=== PATIENT | female | born 1965 | race Caucasian/White ===

== ENCOUNTER 2023-07-20 13:57 | Inpatient (IN) | payer BC, SELFPAY ==
[2023-07-20] VITALS (10 sets, daily range): BP systolic 105–189; BP diastolic 63–110
[2023-07-20 07:57] LABS: % Basophils 0.3 % (0-2); % Eosinophils 0.4 % (0-6); % Immature Granulocytes 0.3 % (0-0.5); % Lymphocytes 9.8 % (20.5-51.1); % Monocytes 5.3 % (1.7-9.3); % Neutrophils 83.9 % (42.2-75.2); Absolute Basophils 0.1 10^3/uL (0-0.2); Absolute Eosinophils 0.1 10^3/uL (0-0.7); Absolute Immature Granulocytes 0.1 10^3/uL (0-0.05); Absolute Lymphocytes 1.7 10^3/uL (1.2-3.4); Absolute Monocytes 0.9 10^3/uL (0.1-0.6); Absolute Neutrophils 14.3 10^3/uL (1.4-6.5); Hemoglobin 13.9 g/dL (12.0-16.0); Mean Corp Hgb Conc. 34.8 g/dL (33.0-37.0); Mean Corpuscular Hgb 27.7 pg (27.0-31.0); Mean Corpuscular Volume 79.8 fL (81.0-99.0); Mean Platelet Volume 10.6 fL (7.4-10.4); Nucleated Red Blood Cells % 0 %; Platelet Count 218 10^3/uL (130-400); Red Blood Cell Count 5.01 10^6/uL (4.20-5.40); Red Cell Dist. Width 14.1 % (11.5-14.5)
[2023-07-20 08:10] LABS: ALT (SGPT) 36 U/L (0-35); AST (SGOT) 26 U/L (14-36); Albumin 3.8 g/dl (3.5-5.0); Alkaline Phosphatase 65 U/L (38-126); Blood Urea Nitrogen 10 mg/dl (7-17); Calcium 9.1 mg/dl (8.4-10.2); Carbon Dioxide 22 mmol/L (22-30); Chloride 104 mmol/L (98-107); Glucose 119 mg/dl (70-99); Potassium 3.3 mmol/L (3.5-5.1); Sodium 133 mmol/L (135-145); Total Bilirubin 1.1 mg/dl (0.2-1.3); Total Protein 6.4 g/dl (6.3-8.2); eGFR > 60.00
--- NOTE | 2023-07-20 08:58 | ED.GENMED ---
History of Present Illness
General
Chief Complaint: Abdominal Symptoms
Source: patient, spouse and family
Exam Limitations: none
Time Seen by Provider: 07/20/23 08:08
Nursing documentation reviewed up to this point in time: agreed with
Travel History
Have you had any contact with someone who has COVID-19?: No
Do you have any symptoms of coronavirus? Fever > 100 degrees, chills, cough, shortness of breath, sore throat, loss of taste or smell, muscle aches, or headache?: No
History of Present Illness
History of Present Illness:
58-year-old female with past medical history of hypertension hyperlipidemia, GERD, asthma multiple back and neck surgeries presenting to the emergency department today with concerns of abdominal pain. Recently diagnosed with colitis and was
admitted to [facility] 2 days ago but left AMA. She claims that she has had ongoing and worsening abdominal pain as well as bloody bowel movement since last night as well as this morning. Denies any fevers has had nausea no vomiting.
She spoke with her GI doctor that recommended getting an angiogram to evaluate for possible ischemic colitis. Of note over the past year she had a colonoscopy that required her to follow-up with repeated colonoscopy at [facility] for multiple mass
removals that were noncancerous.
Past History
Past History
ED Past Medical History: None
ED Past Surgical History: None
Review of Systems
Review of Systems
Allergies reviewed?: Yes
All Other Systems: ROS reviewed and negative except as documented in HPI and ROS
Phy Exam
Physical Exam
Physical Exam:
GENERAL: Alert , in no apparent distress
EYE: pupils equal and reactive
NECK: Supple, no significant adenopathy.
ENT: o/p clr, mmm.
CARDIAC: Regular rate and rhythm .
LUNGS: Clear breath sounds bilaterally, no acute respiratory distress, no wheezes/rales/rhonchi
ABDOMEN: Discomfort throughout the left side of the abdomen no specific point tenderness no sharp tenderness no peritoneal signs no significant guarding. Rectal examination revealed red-tinged stool guaiac positive.
NEUROLOGICAL: Alert and oriented, no focal neuro deficits
SKIN: Warm and dry, skin intact.
MUSCULOSKELETAL: No edema, well perfused.
PSYCH: Normal and appropriate interaction.
Course
Orders/Labs/Results
Orders:
Orders
07/20/23 07:48
Complete Blood Count/With Diff Urgent
Comprehensive Metabolic Panel Urgent
07/20/23 08:48
CT Angio Abd/Pelvis w/wo IV [CT Abd/pelvis Angio W/wo Iv] Urgent
Comment:
Reason For Exam: sent in by GI for angio eval colitis
Urinalysis Reflex To Culture Urgent
Stool Culture Urgent
LAILA Source: Feces/Stool
Specimen Description:
0.9% Sodium Chloride 1000 ml [Nss] 1,000 ml IV BOLUS
Morphine Sulfate 4 mg IV NOW STA
Ondansetron Injectable [Zofran] 4 mg IV NOW STA
Pantoprazole [Protonix IV] 40 mg IV NOW STA
07/20/23 08:54
Sterile Water [Sterile Water For Injection] 10 ml .ROUTE .[facility]
07/20/23 08:56
Lactic Acid Urgent
Lipase Urgent
PTT Urgent
Prothrombin Time Urgent
07/20/23 09:05
Type+Screen Urgent
07/20/23 11:11
C DIFF [C difficile Antigen & Toxins] Urgent
LAILA Source: Feces/Stool
Specimen Description:
Piperacillin/Tazo 3.375 Gram [Zosyn] 3.375 gram in 50 ml IV NOW
Abnormal Lab Results
07/20/23 07/20/23
07:48 08:56
WBC 17.0 H 10^3/uL
(4.8-10.8)
MCV 79.8 L fL
(81.0-99.0)
MPV 10.6 H fL
(7.4-10.4)
Abs Immat Gran (auto) 0.1 H 10^3/uL
(0-0.05)
Absolute Neuts (auto) 14.3 H 10^3/uL
(1.4-6.5)
Absolute Monos (auto) 0.9 H 10^3/uL
(0.1-0.6)
Neutrophils % 83.9 H %
(42.2-75.2)
Lymphocytes % 9.8 L %
(20.5-51.1)
APTT 36.3 H Sec
(23.4-35.0)
Sodium 133 L mmol/L
(135-145)
Potassium 3.3 L mmol/L
(3.5-5.1)
Glucose 119 H mg/dl
(70-99)
ALT 36 H U/L
(0-35)
07/20/23 07:48
07/20/23 07:48
Vital Signs
Initial and Last Documented VS:
Initial Vital Signs
Temp Pulse Resp BP Pulse Ox
97.4 F 96 18 189/110 100
07/20/23 07:17 07/20/23 07:17 07/20/23 07:17 07/20/23 07:17 07/20/23 07:17
Last Documented Vital Signs
Temp Pulse Resp BP Pulse Ox
97.4 F 97 9 134/90 99
07/20/23 07:17 07/20/23 11:17 07/20/23 09:22 07/20/23 11:16 07/20/23 08:45
MDM/Problems Addressed
MDM/Problems Addressed:
58-year-old female presenting to the emergency department today with concerns of worsening abdominal discomfort mainly to the left side recently diagnosed with colitis 2 days ago at [facility] was admitted but left prior to concluding her
treatment. Was started on an IV antibiotics at the time. Has had rectal bleeding since last night described as moderate volume. Denies any lightheadedness has had nausea. No fevers. She spoke with her GI doctor they recommended getting an
angiogram to rule out ischemic colitis. CT scan showing significant colitis of the transverse and descending colon also free fluid near the spleen and the pelvic cul-de-sac. Patient with some ongoing bleeding here ongoing pain despite IV opioid
plan to admit for further treatment. Started on IV antibiotic as well.
*Critical Care Note
Total Time (30-74mins, 75-104mins- exclusive of procedures): Not Applicable
ED Attending Note
-
Portions of this chart may have been created with voice recognition software.� Occasional wrong word or��sound alike� substitutions may have occurred due to the inherent limitations of voice recognition software.
Discharge Plan
Departure
Patient Disposition: Admit
Date of Disposition: 07/20/23
Time of Disposition: 11:35
Admit to: Med/Surg
Admit to doctor: Deborah
Presentation/result/management discussed w/ accepting MD/DO: Hospitalist
Patient with high blood pressure during this ER visit?: No
Condition: Good
Covid-19: Not Applicable
Discharge Problem:
Colitis, Acute GI bleeding
Prescriptions:
No Action
levofloxacin 500 mg Tablet
500 mg PO DAILY
Patient Comments:
patient warp picker on 07/17/23 #10
cetirizine [Zyrtec] 10 mg Tablet
10 mg PO DAILY
omeprazole 40 mg Capsule,Delayed Release(Dr/Ec)
40 mg PO BID
rosuvastatin [Crestor] 10 mg Tablet
10 mg PO DAILY
duloxetine [Cymbalta] 60 mg Capsule,Delayed Release(Dr/Ec)
60 mg PO BID
cyclobenzaprine [Flexeril] 10 mg Tablet
10 mg PO BID
nabumetone [Relafen] 750 mg Tablet
750 mg PO BID
tizanidine [Zanaflex] 4 mg Tablet
4 mg PO HS
sumatriptan succinate [Imitrex] 100 mg Tablet
0 mg PO .COMPLEX
Rx Instructions:
take 1 tab at onset of headache; if no relief, may repeat 1 tab after at least 2 hrs; max = 2 tabs/24 hrs
zinc sulfate 50 mg zinc (220 mg) Tablet
50 mg PO DAILY
oxycodone-acetaminophen [Percocet] 10-325 mg Tablet
1 tab PO DAILYPRN PRN (Reason: migraines)
vitamin B complex [B Complete] Tablet
1 tab PO DAILY
montelukast [Singulair] 10 mg Tablet
10 mg PO HS
diazepam [Valium] 5 mg Tablet
5 mg PO BID
vitamin D3-vitamin K2 25 mcg (1,000 unit)-90 mcg Tablet,Disintegrating
1 tab PO DAILY
PNV cmb#95-ferrous fumarate-FA [] 28 mg iron- 800 mcg Tablet
1 tab PO DAILY
Adrenal X Ray Operator Capsule
1 cap PO BID
Thyroid Support Supplement
1 tab PO TID
Referrals:
Phillip Mackey DO [Family Provider] -
Interventions
Interventions:
*Risk Screen - Suicide Last Done: 07/20/23 07:41
*General Assessment Last Done: 07/20/23 07:41
*Neglect/Abuse Screening Last Done: 07/20/23 07:41
ED- Fall Risk Assessment Last Done: 07/20/23 07:54
*ED COVID-19 Vaccine History Last Done: 07/20/23 07:41
TR-Fsczrf-Lpwxgtisje Assessment Last Done: 07/20/23 07:42
[2023-07-20] MEDS: MORPHINE SULFATE 4 MG IV (09:03)
[2023-07-20] MEDS: ZOFRAN 4 MG IV (09:03)
[2023-07-20] MEDS: PROTONIX IV 40 MG IV (09:03)
[2023-07-20] MEDS: NSS 1000 IV (09:04)
[2023-07-20 09:31] LABS: Lactic Acid 1.1 mmol/L (0.7-2.0); Lipase 136 U/L (23-300)
[2023-07-20 09:33] LABS: INR 1.05; PT 13.5 Sec (11.4-14.6)
[2023-07-20 09:34] LABS: APTT 36.3 Sec (23.4-35.0)
[2023-07-20] MEDS: ZOSYN 50 IV ×3 (11:14→23:37)
--- NOTE | 2023-07-20 11:56 | CON.GI ---
Addendum entered and electronically signed by Chavez Romero MD 07/20/23 19:19:
I saw and examined the patient.
The PA's note was reviewed and I agree with the note.
Comment:
The patient is a 58 year old female with h/o GERD, Asthma, HTN, hyperlipidemia, DM, multiple back surgeries who p/w abdominal pain and rectal bleeding. She was recently admitted to [facility] for evaluation of abdominal pain and was found
to have colitis. She signed out AMA as she/family was dissatisfied with care.� She felt ok for a day but her abdo pain recurred and had rectal bleeding. Initially seeing red blood on Wednesday then darker blood prior to admission.� CT angio done here
showed moderate to severe colitis from distal transverse colon to descending colon.� Denies recent travel, or sick contact. She does admit to eating at family constitution party prior to onset.
Impression / Rec:
1. Colitis - etiology is not clear, possibly ischemic colitis although she does not have risk factors (vasculopathy or afib/CHF); however her symptoms starting with abdominal pain followed by rectal bleeding and location of colitis is possibly
suggestive. She had colonoscopies x 2 in 11/2022 and 12/2022 which were unremarkable (except for IC valve lesion which turned out to be benign). Agree with stool studies, will follow clinically. Will consider possible flx sigmoidoscopy for
evaluation of left sided colitis. Ok with CLD for now.
Addendum entered and electronically signed by DESTINI Oscar 07/20/23 17:52:
correction to below hx EGD November 2022 [facility] with PUD. Will try to obtain record Dr. Gorman [facility] with report neg stool studies, and vernon wilson. add Miralax PRN. updated family at length. repeat hbg stable 12.1 repeat in AM.
Original Note:
Consultation
-
Date/Time Consultation Requested: 07/20/23 1130
Date/Time Consultation Performed: 07/20/23 1150
Requesting Provider: Berto Coe PA-C
Performing Provider: DESTINI Grimes, Chavez Romero MD
Reason for Consultation: Gi bleed, colitis
Medical History
Chief Complaint / HPI
Chief Complaint: abdominal pain, bloody diarrhea
History of Present Illness:
Pt is a 58yo with hx GERD, Asthma, HTN, hyperlipidemia, type II DM, multiple back surgeries with recent [facility] evaluation with colitis and signed out AMA. She now present with continued bleeding and abdominal pain. Initially seeing red blood on
Wednesday then darker blood prior to admission. She also had LLQ pain but now also some upper abdominal pain. CT angio on admission with moderate to severe colitis to transverse colon to distal descending. Pt admits to recent cipro for UTI but no
recent travel, or sick contact. She does admit to eating at family constitution party prior to onset.
Pt otherwise has chronic GERD on Omeprazole daily and chronic constipation. Pt also related change in diet with hx multiple allergies to wheat, rye, egg etc with noted rash. She was on Mounjaro but weaning off. Hx colonoscopy with
[facility] within last year with neg bx but abnormal IC valve. She had repeat at [facility] with second neg bx and genetic testing as father with hx pancreatic CA and Berenice Mejia syndrome.
Past Medical History
Past Medical History: Asthma, GERD, HTN, Hypercholesterolemia, NIDDM and Other (renal cyst)
Past Surgical History: Orthopedic (multiple back and neck surgeries)
Social History
Tobacco: Non-Smoker
Alcohol: None
Drug: Marijuana
Personal:
Living: With Family
Employment: Not Employed
Family History
Family History: Other (father with pancreatic CA and Berenice Mejia syndrome)
Allergies / Home Medications
Allergy/AdvReac Type Severity Reaction Status Date / Time
gluten Allergy Unknown Verified 07/20/23 07:17
metronidazole [From Flagyl] Allergy Anaphylaxis Verified 07/08/21 15:52
shellfish derived Allergy Unknown Verified 07/20/23 07:17
Medication Instructions Recorded
Thyroid Support Supplement 1 tab PO TID Supplement 07/20/23
cetirizine 10 mg tablet (Zyrtec) 10 mg PO DAILY Allergies 07/20/23
cyclobenzaprine 10 mg tablet 10 mg PO BID Muscle Spasms 07/20/23
diazepam 5 mg tablet (Valium) 5 mg PO BID Mental Health/Anxiety 07/20/23
duloxetine 60 mg capsule,delayed 60 mg PO BID Mental Health/Anxiety 07/20/23
release (Cymbalta)
levofloxacin 500 mg tablet 500 mg PO DAILY Infection 07/20/23
montelukast 10 mg tablet 10 mg PO HS Allergies 07/20/23
(Singulair)
multivitamin with mineral-herbal 1 cap PO BID Supplement 07/20/23
no.315 capsule (Adrenal Poker Dealer
capsule)
nabumetone 750 mg tablet 750 mg PO BID Pain 07/20/23
omeprazole 40 mg capsule,delayed 40 mg PO BID Gastrointestinal Issue 07/20/23
release
oxycodone-acetaminophen 10 mg-325 1 tab PO DAILYPRN PRN migraines 07/20/23
mg tablet (Percocet)
vit no.95-ferrous 1 tab PO DAILY Supplement 07/20/23
fumarate 28 mg-folic acid 800 mcg
tablet ()
rosuvastatin 10 mg tablet (Crestor) 10 mg PO DAILY High Cholesterol 07/20/23
sumatriptan succinate 100 mg 0 mg PO .COMPLEX migraine 07/20/23
tablet (Imitrex)
tizanidine 4 mg tablet (Zanaflex) 4 mg PO HS Muscle Spasms 07/20/23
vitamin B complex 1 tab PO DAILY Supplement 07/20/23
vitamin D3 25 mcg (1,000 unit)-vit 1 tab PO DAILY Supplement 07/20/23
K2 90 mcg disintegrating tablet
zinc sulfate 50 mg zinc (220 mg) 50 mg PO DAILY Supplement 07/20/23
tablet
Review of Systems
-
History Source: Patient
Constitutional: Reports No Symptoms
EENT: Reports No Symptoms
Respiratory: Reports No Symptoms
Abdomen/GI: Reports Abdominal Pain, Diarrhea, Constipated and Bloody Stools
: Reports No Symptoms and Other (hx chronic UTI with recent UTI and abx)
Musculoskeletal: Reports No Symptoms
Skin: Reports No Symptoms
Neurological: Reports Weakness
Endocrine: Reports No Symptoms
Hematologic/Lymphatic: Reports Bleeding
Vital Signs
Temp Pulse Resp BP Pulse Ox
97.4 F 97 9 134/90 99
07/20/23 07:17 07/20/23 11:17 07/20/23 09:22 07/20/23 11:16 07/20/23 08:45
Physical Exam
Exam
General: Well Developed, Well Nourished and No Apparent Distress
HEENT: Normocephalic and Anicteric
Respiratory: Clear
Cardiac: Regular Rhythm
GI: Soft, Non Distended and Tender (epigastric and LLQ)
Musculoskeletal: No Clubbing and No Cyanosis
Skin: Warm and Dry
Neuro: Awake, Alert and AO x 3
Psych: Calm
Results
WBC 17.0 10^3/uL (4.8-10.8) H 07/20/23 07:48
Hgb 13.9 g/dL (12.0-16.0) 07/20/23 07:48
Hct 40.0 % (37.0-47.0) 07/20/23 07:48
MCV 79.8 fL (81.0-99.0) L 07/20/23 07:48
Plt Count 218 10^3/uL (130-400) 07/20/23 07:48
Absolute Neuts (auto) 14.3 10^3/uL (1.4-6.5) H 07/20/23 07:48
PT 13.5 Sec (11.4-14.6) 07/20/23 08:56
INR 1.05 07/20/23 08:56
APTT 36.3 Sec (23.4-35.0) H 07/20/23 08:56
Sodium 133 mmol/L (135-145) L 07/20/23 07:48
Potassium 3.3 mmol/L (3.5-5.1) L 07/20/23 07:48
Chloride 104 mmol/L (98-107) 07/20/23 07:48
Carbon Dioxide 22 mmol/L (22-30) 07/20/23 07:48
BUN 10 mg/dl (7-17) 07/20/23 07:48
Creatinine 0.7 mg/dL (0.6-1.0) 07/20/23 07:48
Calcium 9.1 mg/dl (8.4-10.2) 07/20/23 07:48
Total Bilirubin 1.1 mg/dl (0.2-1.3) 07/20/23 07:48
AST 26 U/L (14-36) 07/20/23 07:48
ALT 36 U/L (0-35) H 07/20/23 07:48
Alkaline Phosphatase 65 U/L (38-126) 07/20/23 07:48
Lipase 136 U/L (23-300) 07/20/23 08:56
Diagnostic Image Results:
07/20/23 CT angio a/p
IMPRESSION: CT findings compatible with moderate to severe colitis extending contiguously from the distal transverse colon through the distal descending colon. There is a small amount of free fluid adjacent to the spleen in the left upper quadrant.
Small to moderate amount of free fluid within the pelvic cul-de-sac.
No evidence of free intraperitoneal air.
There is mild calcific atherosclerotic disease of the vasculature. No evidence for significant narrowing of the celiac artery or SMA. Ischemic colitis would be unlikely given this finding.
Mild fatty infiltration of the liver.
Prior GI Procedures:
EGD: none
Colonoscopy: x [address] Gorman with ? abnormal at IC valve neg bx and repeat [facility] neg bx -- per pt recall of procedures
Assessment / Plan
-
Pt is a 58yo with hx GERD, Asthma, HTN, hyperlipidemia, type II DM, multiple back surgeries with recent [facility] evaluation with colitis and signed out AMA. She now present with continued bleeding and abdominal pain. Initially seeing red blood on
Wednesday then darker blood prior to admission. She also had LLQ pain but now also some upper abdominal pain. CT angio on admission with moderate to severe colitis to transverse colon to distal descending. Pt admits to recent cipro for UTI but no
recent travel, or sick contact. She does admit to eating at family constitution party prior to onset.
-moderate to severe colitis
-leukocytosis
-hx abnormal IC valve with neg bx per patient recall colonoscopy Dr. Gorman and vernon wilson 2022
-hyponatremia
-hypokalemia
-fatty liver noted on CT
other medical problems:
-GERD
-Asthma
-HTN
-hyperlipidemia
-DM type 2
-multiple back surgery
-multiple food allergies
PLAN:
etiology of colitis related to infectious etiology with recent abx, food ingested at constitution party, leukocytosis vs less likely ischemic colitis or IBD vs other
plan for stool studies
IV Zosyn
monitor stools and hbg with rectal bleeding
IVF
advance diet as tolerated
Dr. Gorman follow up after admission
replete electrolytes per medical team
OP follow up for fatty liver finding on CT
-
-
Thank you for consultation and allowing me to participate in the patient's care. Please call the [facility] GI physician during the after hours with any questions or concerns.
--- NOTE | 2023-07-20 12:51 | HPS.HSE ---
Family Physician
-
Family Physician: Phillip Mackey
Chief Complaint
-
Rectal bleeding
History of Present Illness
58-year-old female with a past medical history of diabetes, migraine headaches, hyperlipidemia, gastroesophageal reflux disease, and anxiety/depression presents with rectal bleeding since Wednesday. Patient was seen at [facility] on Wednesday, admitted
with colitis. She ended up leaving because she was unhappy with their care. Patient continued to have intermittent rectal bleeding, worse this morning. Associated symptoms include nausea, and left lower quadrant abdominal pain. No vomiting, no
fever. No chest pain, no shortness of breath.
Medical History
Past Medical History
Past Medical History: Reports Other
Additional Past Medical History:
Hyperlipidemia
Migraines
Gastroesophageal reflux disease
Allergic rhinitis
Anxiety/depression
Constipation
Type 2 diabetes
Past Surgical History: Reports Other
Additional Past Surgical History:
8 neck and back surgeries
Social History
Tobacco: Non-smoker
Alcohol: None
Drug: None
Personal:
Living: With Family
Family History
Family History: Not pertinent
Allergies / Home Medications
Allergies reflects when Allergies were last updated in [facility].
Home Medications with original date entered in [facility]
Allergy/Medication List:
Allergies
Allergy/AdvReac Type Severity Reaction Status Date / Time
gluten Allergy Unknown Verified 07/20/23 07:17
metronidazole [From Flagyl] Allergy Anaphylaxis Verified 07/08/21 15:52
shellfish derived Allergy Unknown Verified 07/20/23 07:17
Home Medications Table - record
Medication Instructions Recorded Confirmed
Thyroid Support Supplement 1 tab PO TID Supplement 07/20/23 07/20/23
cetirizine 10 mg tablet (Zyrtec) 10 mg PO DAILY Allergies 07/20/23 07/20/23
cyclobenzaprine 10 mg tablet 10 mg PO BID Muscle Spasms 07/20/23 07/20/23
diazepam 5 mg tablet (Valium) 5 mg PO BID Mental Health/Anxiety 07/20/23 07/20/23
duloxetine 60 mg capsule,delayed 60 mg PO BID Mental Health/Anxiety 07/20/23 07/20/23
release (Cymbalta)
levofloxacin 500 mg tablet 500 mg PO DAILY Infection 07/20/23 07/20/23
montelukast 10 mg tablet 10 mg PO HS Allergies 07/20/23 07/20/23
(Singulair)
multivitamin with mineral-herbal 1 cap PO BID Supplement 07/20/23 07/20/23
no.315 capsule (Adrenal Grain Trimmer
capsule)
nabumetone 750 mg tablet 750 mg PO BID Pain 07/20/23 07/20/23
omeprazole 40 mg capsule,delayed 40 mg PO BID Gastrointestinal Issue 07/20/23 07/20/23
release
oxycodone-acetaminophen 10 mg-325 1 tab PO DAILYPRN PRN migraines 07/20/23 07/20/23
mg tablet (Percocet)
vit no.95-ferrous 1 tab PO DAILY Supplement 07/20/23 07/20/23
fumarate 28 mg-folic acid 800 mcg
tablet ()
rosuvastatin 10 mg tablet (Crestor) 10 mg PO DAILY High Cholesterol 07/20/23 07/20/23
sumatriptan succinate 100 mg 0 mg PO .COMPLEX migraine 07/20/23 07/20/23
tablet (Imitrex)
tizanidine 4 mg tablet (Zanaflex) 4 mg PO HS Muscle Spasms 07/20/23 07/20/23
vitamin B complex 1 tab PO DAILY Supplement 07/20/23 07/20/23
vitamin D3 25 mcg (1,000 unit)-vit 1 tab PO DAILY Supplement 07/20/23 07/20/23
K2 90 mcg disintegrating tablet
zinc sulfate 50 mg zinc (220 mg) 50 mg PO DAILY Supplement 07/20/23 07/20/23
tablet
Review of Systems
-
A 12 point ROS was completed and negative except as noted: No
Physical Exam
Vital Signs
Vital Signs
Temp Pulse Resp BP Pulse Ox
97.4 F 98 22 140/74 99
07/20/23 07:17 07/20/23 12:30 07/20/23 12:30 07/20/23 12:00 07/20/23 08:45
Physical Exam
General: No Apparent Distress
HEENT: NormoCephalic, Anicteric, Moist mucous membranes and Atraumatic
Respiratory: Clear
Cardiac: S1/S2 and Regular Rhythm
GI: Soft, Non Distended, Normal Bowel Sounds and Tender
Musculoskeletal: No Clubbing, No Cyanosis and No Edema
Skin: Warm and Dry
Neuro: Awake, Alert and Oriented
Psych: Calm
Laboratory Results
-
07/20/23 07:48
07/20/23 07:48
Laboratory Results
PT 13.5 Sec (11.4-14.6) 07/20/23 08:56
INR 1.05 07/20/23 08:56
APTT 36.3 Sec (23.4-35.0) H 07/20/23 08:56
Lactic Acid 1.1 mmol/L (0.7-2.0) 07/20/23 08:56
Total Bilirubin 1.1 mg/dl (0.2-1.3) 07/20/23 07:48
AST 26 U/L (14-36) 07/20/23 07:48
ALT 36 U/L (0-35) H 07/20/23 07:48
Alkaline Phosphatase 65 U/L (38-126) 07/20/23 07:48
Lipase 136 U/L (23-300) 07/20/23 08:56
Impression/Plan
-
HPI: 58-year-old female with a past medical history of diabetes, migraine headaches, hyperlipidemia, gastroesophageal reflux disease, and anxiety/depression presents with rectal bleeding since Wednesday. Patient was seen at [facility] on Wednesday,
admitted with colitis. She ended up leaving because she was unhappy with their care. Patient continued to have intermittent rectal bleeding, worse this morning. Associated symptoms include nausea, and left lower quadrant abdominal pain. No
vomiting, no fever. No chest pain, no shortness of breath.
#Colitis, likely infectious
Consult GI, IV Zosyn, IV fluids, check stool studies, can have CLD
Sees Dr. Dr. Gorman outpatient
#Rectal bleeding
Hemoglobin 13.9, monitor
#Hypokalemia
Replete
#Hypovolemic hyponatremia
Should improve with IV fluids
#Type 2 diabetes
Check hemoglobin A1c, sliding scale insulin
She was unhappy at [facility] because they were giving her insulin when her blood sugar was normal
#Gastroesophageal reflux disease
Continue PPI
#Hyperlipidemia
Continue statin
#Elevated blood pressure
Monitor
DVT prophylaxis�SCDs
Full code
[2023-07-20 14:40] LABS: Glucose - Point of Care 88 mg/dl (70-99)
[2023-07-20] MEDS: ZANAFLEX 4 MG PO ×2 (15:30→21:30)
[2023-07-20] MEDS: DILAUDID 0.5 MG IV ×2 (15:30→22:32)
[2023-07-20 15:45] LABS: Glucose - Point of Care 82 mg/dl (70-99)
[2023-07-20] MEDS: CYMBALTA DELAYED RELEASE 60 MG PO (16:21)
[2023-07-20 17:08] LABS: Hematocrit 35.9 % (37.0-47.0); Hemoglobin 12.1 g/dL (12.0-16.0)
--- NOTE | 2023-07-20 18:36 | PTCARENOTE ---
pt admitted from ED AOx3 able to make needs known LCTA B/L on RA abd soft non tender BS hyperactive x4. cont B&B pt reports last BM this AM which was bright red stool. skin CDI, no edema. pt reports many spinal surgeries and has cervical collar she
uses PRN and for procedures. CB in reach
[2023-07-20 19:22] LABS: Glucose - Point of Care 96 mg/dl (70-99)
[2023-07-20] MEDS: NSS with KCL 40 MEQ 1000 IV (19:53)
[2023-07-20] MEDS: VALIUM 5 MG PO (20:00)
[2023-07-20] MEDS: FLEXERIL 10 MG PO (20:00)
[2023-07-20] MEDS: PROTONIX 40 MG PO (20:00)
[2023-07-20] MEDS: IMITREX 100 MG PO (20:13)
[2023-07-20] MEDS: SINGULAIR 10 MG PO (21:30)
[2023-07-20 21:36] LABS: Glucose - Point of Care 144 mg/dl (70-99)
[2023-07-20 22:05] LABS: Urine Albumin Negative (Neg - Trace); Urine Bilirubin Negative (Negative); Urine Character Clear (Clear); Urine Color Yellow; Urine Glucose Negative (Negative); Urine Ketone Trace (Negative); Urine Leukocyte Negative (Negative); Urine Nitrite Negative (Negative); Urine Occult Blood Negative (Negative); Urine Specific Gravity 1.005 (<1.030); Urine Urobilinogen Negative (Neg - 1+)
[2023-07-21] VITALS (8 sets, daily range): BP systolic 13–157; BP diastolic 71–98
[2023-07-21] MEDS: MYLICON 80 MG PO (00:22)
[2023-07-21] MEDS: ZOSYN 50 IV ×4 (05:29→23:46)
[2023-07-21 06:23] LABS: Hematocrit 35.7 % (37.0-47.0); Hemoglobin 11.9 g/dL (12.0-16.0); Mean Corp Hgb Conc. 33.3 g/dL (33.0-37.0); Mean Corpuscular Hgb 27.2 pg (27.0-31.0); Mean Corpuscular Volume 81.7 fL (81.0-99.0); Mean Platelet Volume 11.3 fL (7.4-10.4); Platelet Count 206 10^3/uL (130-400); Red Blood Cell Count 4.37 10^6/uL (4.20-5.40); Red Cell Dist. Width 14.2 % (11.5-14.5); White Blood Cell Count 14.5 10^3/uL (4.8-10.8)
[2023-07-21 07:23] LABS: Blood Urea Nitrogen 7 mg/dl (7-17); Calcium 8.4 mg/dl (8.4-10.2); Carbon Dioxide 29 mmol/L (22-30); Chloride 105 mmol/L (98-107); Estimated Creatinine Clearance 77 ml/min; Glucose 87 mg/dl (70-99); Magnesium 1.7 mg/dl (1.6-2.3); Potassium 3.4 mmol/L (3.5-5.1); Sodium 135 mmol/L (135-145); eGFR > 60.00
[2023-07-21 08:23] LABS: Glucose - Point of Care 99 mg/dl (70-99)
[2023-07-21] MEDS: ZANAFLEX 4 MG PO ×2 (08:37→20:13)
[2023-07-21] MEDS: CRESTOR 10 MG PO (08:37)
[2023-07-21] MEDS: FLEXERIL PO ×2 (08:37→08:41)
[2023-07-21] MEDS: PROTONIX 40 MG PO ×2 (08:37→20:13)
--- NOTE | 2023-07-21 08:37 | W.PN.HOSP.TC ---
Today's Communication/Plan
-
For flex sig
Assessment / Plan
Assessment / Plan
HPI: 58-year-old female with a past medical history of diabetes, migraine headaches, hyperlipidemia, gastroesophageal reflux disease, and anxiety/depression presents with rectal bleeding since Wednesday.� Patient was seen at [facility] on Wednesday,
admitted with colitis.� She ended up leaving because she was unhappy with their care.� Patient continued to have intermittent rectal bleeding, worse this morning.� Associated symptoms include nausea, and left lower quadrant abdominal pain.� No
vomiting, no fever.� No chest pain, no shortness of breath.
#Colitis, likely infectious
C. difficile/Cryptosporidium negative, rest of stool studies pending
Appreciate GI input, patient for flex sig today
Continue IV Zosyn, IV fluids
Sees Dr. Dr. Gorman outpatient
#Rectal bleeding
#Acute blood loss anemia
Hemoglobin 11.9 today, was 12.1, 13 point
Continue to monitor
#Hypokalemia
Replete, Mg normal
#Hypovolemic hyponatremia
Resolved with with IV fluids
# History of type 2 diabetes
Hemoglobin A1c 5.7
Stop Accu-Cheks, start sliding scale insulin
#Gastroesophageal reflux disease
Continue PPI
#Hyperlipidemia
Continue statin
#Essential hypertension
Resume home lisinopril, titrate as needed
DVT prophylaxis�SCDs
Full code
Total time spent to see the patient on the floor, examine the patient, review data and lab results, discuss treatment plan with patient, nursing staff around 51 minutes.
Physical Exam
General: Appears to not feel well, no acute distress
HEENT: Normocephalic, Atraumatic, EOMI, MMM
Respiratory: Clear to Auscultation bilaterally
Cardiac: Normal S1/S2, Regular Rate and Rhythm
GI: Soft, tender at the left lower quadrant, Nondistended, Normal Bowel Sounds
Extremities: No Clubbing, Cyanosis, or Edema
Anticipated Discharge: 24 - 48 hours
Subjective/Interval History
-
Date of Service: July 21, 2023
Patient had a small amount of bloody diarrhea this morning. Abdominal pain improved. No vomiting.
Objective Data
-
Labs:
Laboratory Results
07/21/23
05:29
WBC 14.5 H
Hgb 11.9 L
Hct 35.7 L
Plt Count 206
Sodium 135
Potassium 3.4 L
Chloride 105
Carbon Dioxide 29
BUN 7
Creatinine 0.7
Glucose 87
Calcium 8.4
Vital Signs:
Vital Signs
Temp Pulse Resp BP Pulse Ox
97.8 F 101 18 155/90 97
07/21/23 07:00 07/21/23 07:00 07/21/23 07:00 07/21/23 07:00 07/21/23 07:00
I&O
07/20/23 07/21/23 07/22/23
06:59 06:59 06:59
Intake Total 480 / 480
Balance 480 / 480
[2023-07-21] MEDS: VALIUM 5 MG PO ×2 (08:38→20:12)
[2023-07-21] MEDS: ZYRTEC 10 MG PO (08:38)
[2023-07-21] MEDS: CYMBALTA DELAYED RELEASE 60 MG PO ×2 (08:38→12:20)
[2023-07-21] MEDS: ZESTRIL 10 MG PO (08:38)
[2023-07-21] MEDS: KCL 40 MEQ PO (08:53)
--- NOTE | 2023-07-21 08:58 | W.PN.GI.CBS2 ---
Today's Communication / Plan
-
etiology of colitis related to infectious etiology with recent abx, food ingested at [employer], leukocytosis vs ischemic colitis with distribution but celiac and SMA stable on CT or IBD though not noted on recent colonoscopy vs other
plan for stool studies some with urine contamination overnight to obtain today
await records from [place] of stool studies and prior colon x 2 done in past year
cont IV Zosyn
still with some blood noted overnight with stable hbg and WBC decreasing
cont IVF
discussed with patient and Dr. Romero with continued bleeding will proceed with flex sig today NPO, enema client development consultant
reviewed CT with patient and discussed fatty liver not seen on prior CT -- OP follow up with Dr. Gorman to review
replete electrolytes per medical team
cont PPI BID -- discussed caution with Relafen(NSAID) use with clear and limited diet and hx PUD
Dr. Gorman follow up after admission
Assessment / Plan
-
Pt is a 58yo with hx GERD, Asthma, HTN, hyperlipidemia, type II DM, multiple back surgeries with recent [facility]'s evaluation with colitis and signed out AMA. She now present with continued bleeding and abdominal pain. Initially seeing red blood on
Wednesday then darker blood prior to admission. She also had LLQ pain but now also some upper abdominal pain. CT angio on admission with moderate to severe colitis to transverse colon to distal descending. Pt admits to recent cipro for UTI but no
recent travel, or sick contact. She does admit to eating at [employer] prior to onset.
-moderate to severe colitis with rectal bleeding
-leukocytosis
-hx abnormal IC valve with neg bx per patient recall colonoscopy Dr. Gorman and vernon wilson 2022
-hyponatremia- normalized 07/21
-hypokalemia
-fatty liver noted on CT
other medical problems:
-hx PUD
-GERD
-Asthma
-HTN
-hyperlipidemia
-DM type 2
-multiple back surgery
-multiple food allergies
-family hx daisy Mejia and panc CA in father
PLAN:
etiology of colitis related to infectious etiology with recent abx, food ingested at [employer], leukocytosis vs ischemic colitis with distribution but celiac and SMA stable on CT or IBD though not noted on recent colonoscopy vs other
plan for stool studies some with urine contamination overnight to obtain today
await records from [place] of stool studies and prior colon x 2 done in past year
cont IV Zosyn
still with some blood noted overnight with stable hbg and WBC decreasing
cont IVF
discussed with patient and Dr. Romero with continued bleeding will proceed with flex sig today NPO, enema client development consultant
reviewed CT with patient and discussed fatty liver not seen on prior CT -- OP follow up with Dr. Gorman to review
replete electrolytes per medical team
cont PPI BID -- discussed caution with Relafen(NSAID) use with clear and limited diet and hx PUD
Dr. Gorman follow up after admission
Subjective
Subjective
Date of Service: July 21, 2023
still with some tenderness and bleeding overnight pain about 3/10 on clear diet
Objective
Data Reviewed
Laboratory Data:
Laboratory Results
07/21/23 05:29
07/21/23 05:29
Laboratory Results
PT 13.5 Sec (11.4-14.6) 07/20/23 08:56
INR 1.05 07/20/23 08:56
APTT 36.3 Sec (23.4-35.0) H 07/20/23 08:56
Magnesium 1.7 mg/dl (1.6-2.3) 07/21/23 05:29
Total Bilirubin 1.1 mg/dl (0.2-1.3) 07/20/23 07:48
AST 26 U/L (14-36) 07/20/23 07:48
ALT 36 U/L (0-35) H 07/20/23 07:48
Alkaline Phosphatase 65 U/L (38-126) 07/20/23 07:48
Lipase 136 U/L (23-300) 07/20/23 08:56
Vital Signs and I&O:
Vital Signs
Temp Pulse Resp BP Pulse Ox
97.8 F 101 18 155/90 97
07/21/23 07:00 07/21/23 07:00 07/21/23 07:00 07/21/23 07:00 07/21/23 07:00
I&O
07/20/23 07/21/23 07/22/23
06:59 06:59 06:59
Intake Total 480 / 480
Balance 480 / 480
Physical Exam
Physical Exam
HEENT: Anicteric
GI: Other (per Dr. Romero some mild tenderness on exam )
Extremities: No Edema
Neuro: Non Focal
[2023-07-21 09:29] LABS: Glycohemoglobin (HgbA1c) 5.7 % (4.0-5.6)
--- NOTE | 2023-07-21 09:46 | CM ---
Met with patient at bedside; initial assessment completed
Pharmacy verified: [facility]
Patient lives in a 3 story home including basement with and adult son; 2 steps to enter 13 steps between floors; powder room on the 1st floor; 2nd floor bath has shower stall
PLOF: reports she is independent with ADLs, ambulation, and stairs; drives; not working at this time
SNF/Rehab/Home Care utilization history: none
Transportation: will provide ride home
Plan: discharge to home when medically stable; do not anticipate any services needed
[2023-07-21 11:52] LABS: Glucose - Point of Care 86 mg/dl (70-99)
[2023-07-21 12:25] LABS: Glucose - Point of Care 82 mg/dl (70-99)
[2023-07-21] MEDS: NSS with KCL 40 MEQ 1000 IV (13:05)
[2023-07-21 17:41] LABS: Glucose - Point of Care 86 mg/dl (70-99)
[2023-07-21 21:16] LABS: Glucose - Point of Care 121 mg/dl (70-99)
[2023-07-21] MEDS: SINGULAIR 10 MG PO (21:56)
[2023-07-21] MEDS: NSS with KCL 40 MEQ IV (21:57)
[2023-07-22] MEDS: ZOSYN 50 IV ×4 (04:36→22:34)
[2023-07-22 06:30] LABS: Hematocrit 33.9 % (37.0-47.0); Hemoglobin 11.5 g/dL (12.0-16.0); Mean Corp Hgb Conc. 33.9 g/dL (33.0-37.0); Mean Corpuscular Hgb 27.3 pg (27.0-31.0); Mean Corpuscular Volume 80.3 fL (81.0-99.0); Mean Platelet Volume 10.9 fL (7.4-10.4); Platelet Count 204 10^3/uL (130-400); Red Blood Cell Count 4.22 10^6/uL (4.20-5.40); White Blood Cell Count 10.5 10^3/uL (4.8-10.8)
[2023-07-22 07:00] VITALS: BP 153/90
[2023-07-22 07:23] LABS: Blood Urea Nitrogen 4 mg/dl (7-17); Calcium 8.6 mg/dl (8.4-10.2); Carbon Dioxide 28 mmol/L (22-30); Chloride 106 mmol/L (98-107); Estimated Creatinine Clearance 89 ml/min; Glucose 95 mg/dl (70-99); Potassium 3.7 mmol/L (3.5-5.1); Sodium 137 mmol/L (135-145); eGFR > 60.00
[2023-07-22 08:03] LABS: Glucose - Point of Care 114 mg/dl (70-99)
--- NOTE | 2023-07-22 08:33 | W.PN.HOSP.TC ---
Today's Communication/Plan
-
see bold
Assessment / Plan
Assessment / Plan
HPI: 58-year-old female with a past medical history of diabetes, migraine headaches, hyperlipidemia, gastroesophageal reflux disease, and anxiety/depression presents with rectal bleeding since Wednesday.� Patient was seen at [facility] on Wednesday,
admitted with colitis.� She ended up leaving because she was unhappy with their care.� Patient continued to have intermittent rectal bleeding, worse this morning.� Associated symptoms include nausea, and left lower quadrant abdominal pain.� No
vomiting, no fever.� No chest pain, no shortness of breath.
#Colitis, likely infectious
C. difficile/Cryptosporidium negative, rest of stool studies pending
Appreciate GI input, flex sigmoidoscopy on 05/20 shows hemorrhoids, congested, erythematous, hemorrhagic and ulcerated mucosa in the descending colon, biopsied. Findings suspicious for ischemic colitis, likely from sumatriptan use
Patient counseled to permanently discontinue sumatriptan
Patient did have a leukocytosis upon admission, which has normalized with IV Zosyn
Continue IV Zosyn, IV fluids, adv to LRD, GI signed off
Sees Dr. Dr. Gorman outpatient
#Rectal bleeding
#Acute blood loss anemia
Hemoglobin 11.5 today, was 11.9, was 12.1, 13
Continue to monitor
#Hypokalemia
Repleted and resolved, Mg normal
#Hypovolemic hyponatremia
Resolved with with IV fluids
# History of type 2 diabetes
Hemoglobin A1c 5.7
Stop Accu-Checks, stop sliding scale insulin
#Gastroesophageal reflux disease
Continue PPI
#Hyperlipidemia
Continue statin
#Essential hypertension
Resumed home lisinopril, titrate as needed
DVT prophylaxis�SCDs
Full code
Updated at bedside 07/22
Total time spent to see the patient on the floor, examine the patient, review data and lab results, discuss treatment plan with patient, nursing staff around 51 minutes.
Physical Exam
General: Appears to not feel well, no acute distress
HEENT: Normocephalic, Atraumatic, EOMI, MMM
Respiratory: Clear to Auscultation bilaterally
Cardiac: Normal S1/S2, Regular Rate and Rhythm
GI: Soft, tender at the left lower quadrant, Nondistended, Normal Bowel Sounds
Extremities: No Clubbing, Cyanosis, or Edema
Anticipated Discharge: Within 24 hours
Subjective/Interval History
-
Date of Service: July 22, 2023
Abdominal pain resolved. Still having liquid diarrhea, no blood. Tolerating her liquid diet.
Objective Data
-
Labs:
Laboratory Results
07/22/23
05:18
WBC 10.5
Hgb 11.5 L
Hct 33.9 L
Plt Count 204
Sodium 137
Potassium 3.7
Chloride 106
Carbon Dioxide 28
BUN 4 L
Creatinine 0.6
Glucose 95
Calcium 8.6
Vital Signs:
Vital Signs
Temp Pulse Resp BP Pulse Ox
98.4 F 88 16 153/90 96
07/22/23 07:00 07/22/23 07:00 07/22/23 07:00 07/22/23 07:00 07/22/23 07:00
I&O
07/21/23 07/22/23 07/23/23
06:59 06:59 06:59
Intake Total 480 / 480 640 / 640
Balance 480 / 480 640 / 640
[2023-07-22] MEDS: ZANAFLEX 4 MG PO ×2 (08:55→20:50)
[2023-07-22] MEDS: CYMBALTA DELAYED RELEASE 120 MG PO (08:55)
[2023-07-22] MEDS: PROTONIX 40 MG PO ×2 (08:55→20:50)
[2023-07-22] MEDS: CRESTOR 10 MG PO (08:55)
[2023-07-22] MEDS: VALIUM 5 MG PO ×2 (08:56→20:50)
[2023-07-22] MEDS: ZESTRIL 10 MG PO (08:56)
[2023-07-22] MEDS: ZYRTEC 10 MG PO (08:56)
--- NOTE | 2023-07-22 13:04 | W.PN.GI.CBS2 ---
Today's Communication / Plan
-
adv to low res diet, GI s/o.
Assessment / Plan
-
The patient is a 58 year old female with h/o GERD, Asthma, HTN, hyperlipidemia, DM, multiple back surgeries who p/w abdominal pain and rectal bleeding.� She was recently admitted to [facility] for evaluation of abdominal pain and was found
to have colitis.� She signed out AMA as she/family was dissatisfied with care.� She felt ok for a day but her abdo pain recurred and had rectal bleeding. Initially seeing red blood on Wednesday then darker blood prior to admission.� CT angio done here
showed moderate to severe colitis from distal transverse colon to descending colon.� Denies recent travel, or sick contact. She does admit to eating at [employer] prior to onset.
Flx sigmoidoscopy yesterday showed congested mucosa, ulcerations, and subepithelial hemorrhage in descending colon, bx'ed. Characteristic endo finding of ischemic colitis. Review of her meds show she had been taking sumitryptan which is a rare but
known cause of ischemic colitis. She was taking NSAIDs (also another cause) and sumitryptan. Today she feels her pain is better. Tolerating FLD. Will advance to low res diet. She can complete course of abx. If she tolerates solid diet and
continues to improve, can d/c from GI stand point. Will s/o, call with questions.
Total Time Spent with Patient (in minutes): 35
Subjective
Subjective
Date of Service: July 22, 2023
Feeling better
Objective
Data Reviewed
Laboratory Data:
Laboratory Results
07/22/23 05:18
07/22/23 05:18
Laboratory Results
PT 13.5 Sec (11.4-14.6) 07/20/23 08:56
INR 1.05 07/20/23 08:56
APTT 36.3 Sec (23.4-35.0) H 07/20/23 08:56
Magnesium 1.7 mg/dl (1.6-2.3) 07/21/23 05:29
Total Bilirubin 1.1 mg/dl (0.2-1.3) 07/20/23 07:48
AST 26 U/L (14-36) 07/20/23 07:48
ALT 36 U/L (0-35) H 07/20/23 07:48
Alkaline Phosphatase 65 U/L (38-126) 07/20/23 07:48
Lipase 136 U/L (23-300) 07/20/23 08:56
Vital Signs and I&O:
Vital Signs
Temp Pulse Resp BP Pulse Ox
98.4 F 88 16 155/90 96
07/22/23 07:00 07/22/23 08:56 07/22/23 07:00 07/22/23 08:56 07/22/23 09:49
I&O
07/21/23 07/22/23 07/23/23
06:59 06:59 06:59
Intake Total 480 / 480 640 / 640
Balance 480 / 480 640 / 640
[2023-07-22 15:00] VITALS: BP 137/89
[2023-07-22] MEDS: NSS with KCL 40 MEQ 1000 IV ×2 (17:54→22:35)
[2023-07-22] MEDS: SINGULAIR 10 MG PO (22:34)
[2023-07-22 23:10] VITALS: BP 116/74
[2023-07-23] MEDS: ZOSYN 50 IV (04:40)
[2023-07-23 05:38] LABS: Hematocrit 32.4 % (37.0-47.0); Mean Corpuscular Hgb 27.4 pg (27.0-31.0); Mean Corpuscular Volume 80.8 fL (81.0-99.0); Mean Platelet Volume 10.7 fL (7.4-10.4); Platelet Count 198 10^3/uL (130-400); Red Blood Cell Count 4.01 10^6/uL (4.20-5.40); Red Cell Dist. Width 13.8 % (11.5-14.5); White Blood Cell Count 8.8 10^3/uL (4.8-10.8)
[2023-07-23 06:39] LABS: Blood Urea Nitrogen 5 mg/dl (7-17); Calcium 8.8 mg/dl (8.4-10.2); Carbon Dioxide 28 mmol/L (22-30); Chloride 103 mmol/L (98-107); Estimated Creatinine Clearance 89 ml/min; Glucose 101 mg/dl (70-99); Magnesium 1.8 mg/dl (1.6-2.3); Potassium 4.2 mmol/L (3.5-5.1); Sodium 137 mmol/L (135-145); eGFR > 60.00
[2023-07-23 07:00] VITALS: BP 132/77
--- NOTE | 2023-07-23 07:29 | W.PN.HOSP.TC ---
Today's Communication/Plan
-
Discharge today
Assessment / Plan
Assessment / Plan
HPI: 58-year-old female with a past medical history of diabetes, migraine headaches, hyperlipidemia, gastroesophageal reflux disease, and anxiety/depression presents with rectal bleeding since Wednesday.� Patient was seen at [facility] on Wednesday,
admitted with colitis.� She ended up leaving because she was unhappy with their care.� Patient continued to have intermittent rectal bleeding, worse this morning.� Associated symptoms include nausea, and left lower quadrant abdominal pain.� No
vomiting, no fever.� No chest pain, no shortness of breath.
#Acute ischemic colitis
C. difficile/Cryptosporidium negative, rest of stool studies neg
Appreciate GI input, flex sigmoidoscopy on 05/20 shows hemorrhoids, congested, erythematous, hemorrhagic and ulcerated mucosa in the descending colon, biopsied. Findings suspicious for ischemic colitis, likely from sumatriptan use
Patient counseled to permanently discontinue sumatriptan
Patient did have a leukocytosis upon admission, which has normalized with IV Zosyn
Medically stable for discharge on Augmentin for 7 days for prophylaxis
Follow-up with her usual GI doctor, Dr. Gorman outpatient
#Rectal bleeding
#Acute blood loss anemia
Hemoglobin 11.0 today, was 11.5, was 11.9, was 12.1, 13
Continue to monitor
#Hypokalemia
Repleted and resolved, Mg normal
#Hypovolemic hyponatremia
Resolved with with IV fluids
# History of type 2 diabetes
Hemoglobin A1c 5.7
Stopped Accu-Checks, stopped sliding scale insulin
#Gastroesophageal reflux disease
Continue PPI
#Hyperlipidemia
Continue statin
#Essential hypertension
Resumed home lisinopril, titrate as needed
DVT prophylaxis�SCDs
Full code
Updated at bedside 07/22
Physical Exam
General: Appears to not feel well, no acute distress
HEENT: Normocephalic, Atraumatic, EOMI, MMM
Respiratory: Clear to Auscultation bilaterally
Cardiac: Normal S1/S2, Regular Rate and Rhythm
GI: Soft, tender at the left lower quadrant, Nondistended, Normal Bowel Sounds
Extremities: No Clubbing, Cyanosis, or Edema
Anticipated Discharge: Today
Subjective/Interval History
-
Date of Service: July 23, 2023
Abdominal pain resolved, tolerating low residue diet. No blood in her stools, they are becoming weak.
Objective Data
-
Labs:
Laboratory Results
07/23/23
05:28
WBC 8.8
Hgb 11.0 L
Hct 32.4 L
Plt Count 198
Sodium 137
Potassium 4.2
Chloride 103
Carbon Dioxide 28
BUN 5 L
Creatinine 0.6
Glucose 101 H
Calcium 8.8
Vital Signs:
Vital Signs
Temp Pulse Resp BP Pulse Ox
98.2 F 83 18 116/74 97
07/22/23 23:10 07/22/23 23:10 07/22/23 23:10 07/22/23 23:10 07/22/23 23:10
I&O
07/22/23 07/23/23 07/24/23
06:59 06:59 06:59
Intake Total 640 / 640 2099
Balance 640 / 640 2099
[2023-07-23] MEDS: ZYRTEC 10 MG PO (08:25)
[2023-07-23] MEDS: VALIUM 5 MG PO (08:25)
[2023-07-23] MEDS: CYMBALTA DELAYED RELEASE 120 MG PO (08:25)
[2023-07-23] MEDS: ZANAFLEX 4 MG PO (08:26)
[2023-07-23] MEDS: ZESTRIL 10 MG PO (08:26)
[2023-07-23] MEDS: CRESTOR 10 MG PO (08:26)
[2023-07-23] MEDS: PROTONIX 40 MG PO (08:26)
--- NOTE | 2023-07-23 10:21 | W.DCSUMMARY ---
Discharge Summary
Discharge Data
Date of Admission: 07/20/23
Date of Discharge: 07/23/23
-
Pending Results: Yes
Additional Pending Results:
Colon biopsy pending
Hospital Course
Discharge diagnoses:
Acute colitis, likely ischemic
Rectal bleeding
Acute blood loss anemia
Hypokalemia
Hypovolemic hyponatremia
History of type 2 diabetes, hemoglobin A1c 5.7
Essential hypertension
Gastroesophageal reflux disease
Hyperlipidemia
Consults: GI
CT abd/pelvis:
CT findings compatible with moderate to severe colitis extending contiguously from the distal transverse colon through the distal descending colon. There is a small amount of free fluid adjacent to the spleen in the left upper quadrant. Small to
moderate amount of free fluid within the pelvic cul-de-sac.
No evidence of free intraperitoneal air.
There is mild calcific atherosclerotic disease of the vasculature. No evidence for significant narrowing of the celiac artery or SMA. Ischemic colitis would be unlikely given this finding.
Mild fatty infiltration of the liver.
07/21/2023 Flex sigmoidoscopy:
Congested, erythematous, hemorrhagic and ulcerated mucosa in the descending colon, overall impression is ischemic colitis, likely from sumatriptan use.
Internal hemorrhoids.
Hospital course:
58-year-old female with a past medical history of diabetes, migraine headaches, hyperlipidemia, gastroesophageal reflux disease, and anxiety/depression was admitted for rectal bleeding, and diarrhea secondary to colitis.� Patient was seen at [facility] 3 days prior to presentation, and admitted with colitis.� She ended up leaving because she was unhappy with their care.
Patient was seen in conjunction with GI. She received IV Zosyn. Stool studies were negative. She underwent flexible sigmoidoscopy on 07/21/2023, results as above. GI suspects that she has acute ischemic colitis, from sumatriptan use. She has
been counseled to permanently discontinue her sumatriptan. She was continued on IV Zosyn.
Patient had hypokalemia, this was repleted and resolved.
Patient's rectal bleeding resolved. She did have mild acute blood loss anemia. Her hemoglobin was 11 on the day of discharge, 13 upon admission.
Patient tolerated a low residue diet, her diarrhea improved. She is medically stable and cleared by GI for discharge. She will be discharged on Augmentin for 7 more days for prophylaxis. She has been instructed to follow-up with her usual GI
doctor in the office in 2 weeks, as well as her primary care doctor in 1 week.
Disposition: Home self care
Discharge planning: Required 34 min
Discharge Plan
-
Patient Disposition: Home (Routine Discharge)
Discharge Diagnosis/Procedures: Probable ischemic colitis, suspect from Imitrex use
Condition: Good
Diet: Low Residue
Activity: As tolerated
Driving Restrictions: As prior to admission
Activity Restrictions/Additional Instructions:
Please take an [id number] probiotic for 2 weeks.
Please follow-up with the GI doctor in 2 weeks, and your primary care doctor in 1 week.
Referrals:
Phillip Mackey DO [Family Provider] - in one week
Chavez Romero MD [Active] - in two to three weeks
Prescriptions:
New
amoxicillin-pot clavulanate 875-125 mg tablet
1 tab PO BID 7 Days Qty: 14 0RF
Continued
cetirizine [Zyrtec] 10 mg Tablet
10 mg PO DAILY
omeprazole 40 mg Capsule,Delayed Release(Dr/Ec)
40 mg PO BID
rosuvastatin [Crestor] 10 mg Tablet
10 mg PO DAILY
duloxetine [Cymbalta] 60 mg Capsule,Delayed Release(Dr/Ec)
120 mg PO DAILY
nabumetone 750 mg Tablet
750 mg PO BID
tizanidine [Zanaflex] 4 mg Tablet
4 mg PO BID
zinc sulfate 50 mg zinc (220 mg) Tablet
50 mg PO DAILY
oxycodone-acetaminophen [Percocet] 10-325 mg Tablet
1 tab PO DAILYPRN PRN (Reason: migraines)
vitamin B complex Tablet
1 tab PO DAILY
montelukast [Singulair] 10 mg Tablet
10 mg PO HS
diazepam [Valium] 5 mg Tablet
5 mg PO BID
therapeutic multivitamin Tablet
1 tab PO DAILY
lisinopril 10 mg Tablet
10 mg PO DAILY
cholecalciferol (vitamin D3) [Vitamin D3] 25 mcg (1,000 unit) Tablet
25 mcg PO DAILY
Mounjaro 2.5 mg/0.5 mL Pen Injector
2.5 mg SC SA
Medical Mairjuana
0.5 ml PO DAILYPRN PRN (Reason: spasms)
Discontinued
levofloxacin 500 mg Tablet
500 mg PO DAILY
Patient Comments:
patient picker on 07/17/23 #10
sumatriptan succinate [Imitrex] 100 mg Tablet
0 mg PO .COMPLEX
Rx Instructions:
take 1 tab at onset of headache; if no relief, may repeat 1 tab after at least 2 hrs; max = 2 tabs/24 hrs
Discharge Orders:
Discharge Patient (As Directed); Ordered 07/23/23
Ordered By: Bismark Cruz
Discharge Date and Time
Discharge Date/Time: 07/23/23 13:07
[2023-07-23] MEDS: AUGMENTIN 875 MG/125 MG 1 TABLET PO (10:56)
--- NOTE | 2023-07-23 11:03 | CM ---
Chart reviewed - spoke with pt at bedside
Pt for discharge
Has ride home
Plan - home no needs
--- NOTE | 2023-07-23 12:05 | PN.CDI ---
CDI
- -
CDI:
Physician Documentation Request
Admit Date: 07/20/23 13:57
Dear Doctor Do,
Please review the following and provide your response in the progress notes.
Clinical Indicators:
Pt admitted with Rectal bleeding /colitis
Pt had Sigmoidoscopy done 07/21 colon biopsy results, ' Colon, descending ,biopsy ...In the right clinical setting, the findings are suggestive of ischemic colitis...Pre-Operative Diagnosis: Abdominal pain in the left lower quadrant, abnormal CT of
the GI tract, suspected acute ischemic colitis...'
GI progress note 07/22, ' ..Flx sigmoidoscopy yesterday showed congested mucosa, ulcerations, and subepithelial hemorrhage in descending colon, bx'ed. Characteristic endo finding of ischemic colitis. ....'
Clarify which of the following accurately represents the acuity of the ( Ischemic Colitis ).
Acute
Chronic
Acute on Chronic
Other
Use of terms such as suspected, likely, concern for, or probable (associated with a specific diagnosis that is being evaluated, monitored, or treated as if it exists) are acceptable and can be coded in the inpatient setting, when documented at the
time of discharge.
Thank you,
Asha Coats RN
CDI Specialist
[facility]
Please use your independent medical judgment in providing your response.
== END 2023-07-23 13:07 | disposition home or self-care (01) | DRG 394 ==
LOC: 3 WEST ACU 13:57
PROVIDERS: Nurse Practitioner Adult Health; Physician Assistant; ADMITTING PHYSICIAN Family Medicine; CONSULT PHYSICIAN Internal Medicine Gastroenterology; EMERGENCY PHYSICIAN Emergency Medicine; FAMILY PHYSICIAN Family Medicine
PROC: 0DBN8ZX Excision of Sigmoid Colon, Via Natural or Artificial Opening Endoscopic, Diagnostic (ICD-10-PCS; 2023-07-21)
DX: K55.039 Acute (reversible) ischemia of large intestine, extent unspecified (principal); A09 Infectious gastroenteritis and colitis, unspecified; E87.1 Hypo-osmolality and hyponatremia; D62 Acute posthemorrhagic anemia; K63.3 Ulcer of intestine; K92.2 Gastrointestinal hemorrhage, unspecified; K55.9 Vascular disorder of intestine, unspecified; E87.6 Hypokalemia; E11.9 Type 2 diabetes mellitus without complications; I10 Essential (primary) hypertension; K21.9 Gastro-esophageal reflux disease without esophagitis; E86.1 Hypovolemia; E78.00 Pure hypercholesterolemia, unspecified; J45.909 Unspecified asthma, uncomplicated; K64.0 First degree hemorrhoids; K63.89 Other specified diseases of intestine
CPT/HCPCS: 88305; 74174; 80048; 80053; 81003; 82962; 83036; 83605; 83690; 83735; 85014; 85018; 85025; 85027; 85610; 85730; 86850; 86900; 86901; 87040; 87045; 87046; 87324; 87328; 87329; 87427; 87449; 89055; 96361; 96374; 96375; 99285; Q9967

== ENCOUNTER → 2023-09-16 12:03 | Outpatient (REF) | payer BC, SELFPAY | LOC: WDC 12:03 | PROVIDERS: ATTENDING PHYSICIAN Obstetrics & Gynecology; FAMILY PHYSICIAN Family Medicine | DX: Z12.31 Encounter for screening mammogram for malignant neoplasm of breast (principal) | CPT/HCPCS: 77063; 77067 ==

== ENCOUNTER → 2023-09-21 10:17 | Outpatient (REF) | payer BC, SELFPAY | LOC: WDC 10:17 | PROVIDERS: ATTENDING PHYSICIAN Obstetrics & Gynecology; FAMILY PHYSICIAN Family Medicine | DX: R92.8 Other abnormal and inconclusive findings on diagnostic imaging of breast (principal) | CPT/HCPCS: 76642 ==

== ENCOUNTER → 2024-07-03 10:05 | Outpatient (REF) | payer BC, SELFPAY | LOC: WDC 10:05 | PROVIDERS: ATTENDING PHYSICIAN Obstetrics & Gynecology; FAMILY PHYSICIAN Family Medicine | DX: N61.0 Mastitis without abscess (principal); N63.11 Unspecified lump in the right breast, upper outer quadrant | CPT/HCPCS: 76642; 77061; 77065 ==

== ENCOUNTER → 2024-09-18 13:03 | Outpatient (REF) | payer BC, SELFPAY | LOC: WDC 13:03 | PROVIDERS: ATTENDING PHYSICIAN Obstetrics & Gynecology; FAMILY PHYSICIAN Family Medicine | DX: Z12.31 Encounter for screening mammogram for malignant neoplasm of breast (principal) | CPT/HCPCS: 77063; 77067 ==

== ENCOUNTER → 2024-09-21 10:46 | Outpatient (REF) | payer BC, SELFPAY | LOC: WDC 10:46 | PROVIDERS: ATTENDING PHYSICIAN Obstetrics & Gynecology; FAMILY PHYSICIAN Family Medicine | DX: R92.8 Other abnormal and inconclusive findings on diagnostic imaging of breast (principal) | CPT/HCPCS: 76642 ==

== ENCOUNTER → 2024-10-03 09:47 | Outpatient (REF) | payer BC, SELFPAY ==
--- NOTE | 2024-10-03 15:11 | OID.BR.INTR ---
[facility] Breast Navigator - Initial
- -
Date of Contact: 10/03/24
Met with patient. Patient given written information on navigator service available at [facility]. Will follow up as needed per protocol.
== END ==
LOC: WDC 09:47
PROVIDERS: ATTENDING PHYSICIAN Obstetrics & Gynecology; FAMILY PHYSICIAN Family Medicine
DX: N63.11 Unspecified lump in the right breast, upper outer quadrant (principal)
CPT/HCPCS: 88173; 88305; 19083; 88112; 88342

== ENCOUNTER 2024-11-10 06:12 | Day surgery (SDC) | payer BC, SELFPAY ==
[2024-10-27 10:58] VITALS: BMI 22.0
[2024-10-27 11:20] LABS: Hematocrit 40.8 % (37.0-47.0); Hemoglobin 13.1 g/dL (12.0-16.0); Mean Corp Hgb Conc. 32.1 g/dL (33.0-37.0); Mean Platelet Volume 11.3 fL (7.4-10.4); Platelet Count 211 10^3/uL (130-400); Red Blood Cell Count 4.86 10^6/uL (4.20-5.40); Red Cell Dist. Width 13.3 % (11.5-14.5); White Blood Cell Count 5.1 10^3/uL (4.8-10.8)
[2024-10-27 12:19] LABS: ALT (SGPT) 28 U/L (0-35); AST (SGOT) 24 U/L (14-36); Albumin 4.4 g/dl (3.5-5.0); Alkaline Phosphatase 42 U/L (38-126); Blood Urea Nitrogen 19 mg/dl (7-17); Calcium 9.7 mg/dl (8.4-10.2); Carbon Dioxide 32 mmol/L (22-30); Chloride 105 mmol/L (98-107); Estimated Creatinine Clearance 76 ml/min; Glucose 90 mg/dl (70-99); Potassium 4.7 mmol/L (3.5-5.1); Sodium 141 mmol/L (135-145); Total Bilirubin 0.5 mg/dl (0.2-1.3); Total Protein 7.4 g/dl (6.3-8.2); eGFR > 60.00
[2024-10-27 12:26] LABS: Prealbumin (Transthyretin) 35.3 mg/dl (17.6-36.0)
[2024-10-27 12:40] LABS: Vitamin D, 25-OH*** 61.2 ng/mL (30-80)
--- NOTE | 2024-10-31 15:32 | PTCARENOTE ---
Patients 10/27 ECG abnormal- reviewed by Dr. Alvarado- no additional interventions required
[2024-11-10 08:24] VITALS: BP 168/102; BMI 22.0
[2024-11-10 09:01] LABS: Glucose - Point of Care 98 mg/dl (70-99)
[2024-11-10] MEDS: TYLENOL 1000 MG PO (09:02)
[2024-11-10] MEDS: NORMOSOL-R/PLASMALYTE-A 1000 IV (09:09)
--- NOTE | 2024-11-10 10:38 | W.IMMPOSTOP ---
Surgical Immed Post Op Note
-
Primary Surgeon: Zhou
Assisting Surgeon: None
Pre-op Diagnosis: Two right breast masses
Post-op Diagnosis: Same
Procedure Performed: Lumpectomy for two right breast masses (one incision)
Anesthesia Type: TIVA
Specimen / Cultures: Right lumpectomy and margins
Estimated Blood Loss: 2cc
Complications: None
Operative Findings: None
--- NOTE | 2024-11-10 10:39 | OR.RPT ---
Addendum entered and electronically signed by Alvina Epperson MD 11/15/24 16:32:
Procedure: Lumpectomy two right breast masses
Original Note:
Operative Report
Operative Report
Date of surgery: 11/10/2024
Pre-op diagnosis: 2 masses right breast
Surgeon: Zhou
Pre-op diagnosis: 2 right breast masses
Postop diagnosis: 2 right breast masses
The patient is a 59-year-old female who had 2 palpable right breast masses. Imaging was read as intracystic debris and a biopsy was performed showing a cyst fragment and macrophages. This did not seem to be concordant and the patient presents for
excisional biopsy of the 2 masses.
The patient presented to same-day surgery where she was prepped. She verified site and procedure and was taken to the operating room. In the supine position the right breast was prepped and draped in the usual sterile fashion. The operative team
performed an appropriate timeout.
All tissues were anesthetized with 1% lidocaine plain and a lateral circumareolar incision was made sharply with the blade. Skin flap was elevated with the cautery and the 2 masses were palpable and accessible through the same incision. 2-0 silk
traction stitches were passed through the masses and a wide excision was performed using the cautery. These 2 masses were taken en bloc. Additional margins were harvested for permanent analysis from the posterior, medial, superior, lateral,
inferior, and anterior dimensions. These were oriented as well. Hemostasis was verified. Marcaine 0.5% plain was applied and the wound was closed using simple interrupted 3-0 plain on deep intermediate and subcutaneous tissue and skin was closed
with a running subcuticular 4 Monocryl. Surgical glue and sterile compressive dressing were applied. All sponge needle and instrument counts are correct and the patient was transferred to the recovery room in stable condition.
([id number])
[2024-11-10 10:54] VITALS: BP 122/58
[2024-11-10 11:00] VITALS: BP 144/86
[2024-11-10 11:15] VITALS: BP 135/84
[2024-11-10 11:30] VITALS: BP 132/84
== END 2024-11-10 11:52 | disposition home or self-care (01) ==
LOC: SDS 06:12
PROVIDERS: ATTENDING PHYSICIAN Surgery; FAMILY PHYSICIAN Family Medicine
DX: N60.41 Mammary duct ectasia of right breast (principal); N64.9 Disorder of breast, unspecified
CPT/HCPCS: 19301; 88305; 88307; 36415; 80053; 82306; 82962; 84134; 85027; 87070; 93005; L8000